=== PATIENT | male | born 1935 | race Caucasian/White ===

== ENCOUNTER 2016-11-16 11:53 | Emergency (ER) | payer MEDICARE, BC ==
[~2016-11-16 11:53] MED LIST: ARICEPT5 PO; C5 PO; CELEXA40 MG PO; CYANO1000T PO; GAS-X80 MG PO; GLUCPH PO; HALF81 PO; MULTIPLE VIT PO; PRAVAC PO; REM15 PO; SEROQUEL50 MG PO
[2016-11-16 12:53] LABS: WBC (NOT ORDERED) (RFLEX) 0 (0-5)
[2016-11-16 13:05] LABS: ASCORBIC ACID (UR NOT ORDER) NEG (NEG); BILIRUBIN, URINE NEGATIVE (NEG); ER URINALYSIS TAT 0 Hrs 14 Mins; KETONE, URINE NEGATIVE (NEG); LEUKOCYTE ESTERASE(NOT OR NEG (NEG); NITRITE (URINE) NEG (NEG)
[2016-11-16 13:14] LABS: BASOPHILS 0 %; EOSINOPHILS 0.6 %; EOSINOPHILS ABSOLUTE 0.02 10/3/uL (0.0-0.53); HEMATOCRIT 36.2 % (40.0-51.0); HEMOGLOBIN 12.1 g/dL (13.6-17.8); LYMPHOCYTES 19.6 %; LYMPHOCYTES ABSOLUTE 0.71 10/3/uL (0.67-4.30); MEAN CORPUS HGB CONC 33.4 g/dL (32.0-36.0); MEAN CORPUSCULAR HEMOGLOB 30.1 pg (26.0-34.0); MEAN PLATELET VOLUME 10.6 fL (9.2-13.0); MONOCYTES 6.9 %; MONOCYTES ABSOLUTE 0.25 10/3/uL (0.21-1.20); NEUTROPHILS 72.9 %; NEUTROPHILS ABSOLUTE 2.64 10/3/uL (2.02-8.40); PLATELET COUNT 122 10/3/uL (150-400); RBC DISTRIBUTION WIDTH 15.2 % (12.0-16.0); RED CELL COUNT 4.02 10/6/uL (4.7-6.1)
[2016-11-16 13:15] LABS: ER CBC TAT 0 Hrs 09 Mins; MANUAL DIFF NO %; WHITE BLOOD CELLS 3.6 10/3/uL (4.5-10.5)
[2016-11-16 13:20] LABS: INTERNATIONAL NORMAL RATI 1.3 UNITS (-); PARTIAL THROMBO TIME 30.5 SEC (22.5-37.2); PROTIME (NOT ORD) 16.3 SEC (12.0-14.5)
[2016-11-16 13:28] LABS: A/G RATIO 1.2 (0.7-1.9); ALBUMIN 3.2 G/DL (3.5-5.0); ALKALINE PHOSPHATASE 74 U/L (45-117); BUN (BLOOD UREA NITROGEN) 15 MG/DL (6-23); CHLORIDE, SERUM 109 MMOL/L (96-112); CO2 (CARBON DIOXIDE) 30 MMOL/L (24-34); CREATININE 0.84 MG/DL (0.70-1.30); GFR AFRICAN AMERICAN 95 ML/MIN (>=60); GFR NON AFRICAN AMERICAN 82 ML/MIN (>=60); GLOBULIN 2.7 G/DL (2.5-4.1); GLUCOSE, SERUM 73 MG/DL (60-99); SGPT(ALT) 8 U/L (5-65); SODIUM, SERUM 144 MMOL/L (135-148); TOTAL BILIRUBIN 0.8 MG/DL (0-1.2); TOTAL PROTEIN 5.9 G/DL (6.0-8.5)
[2016-11-16 13:29] LABS: POTASSIUM, SERUM 4.4 MMOL/L (3.5-5.3); SGOT(AST) 24 U/L (5-40)
[2016-11-16 13:44] LABS: LACTATE 1.4 MMOL/L (0.3-2.4)
[2016-11-16 14:37] LABS: PROCALCITONIN <0.05 ng/mL (<0.5)
== END 2016-11-16 12:45 | disposition home or self-care (01) ==
LOC: ER 11:53
PROVIDERS: Emergency Medicine
DX: R53.1 Weakness (principal); I50.9 Heart failure, unspecified; F03.90 Unspecified dementia, unspecified severity, without behavioral disturbance, psychotic disturbance, mood disturbance, and anxiety; Z85.038 Personal history of other malignant neoplasm of large intestine
CPT/HCPCS: 71010; 80053; 81001; 83605; 84145; 85025; 85610; 85730; 87040; 93005; 99285